=== PATIENT | male | born 1980 | race Caucasian/White ===

== ENCOUNTER 2020-02-11 17:00 | Emergency (ER) | payer OTHER ==
[~2020-02-11] VITALS: Ht 167.6 cm; Wt 129.3 kg
[2020-02-11 17:06] VITALS: BP 147/89
--- NOTE | 2020-02-11 17:15 | NUR ---
39/M c/o anxiety x 2-3 hours. Took Suboxone for pain prior to this. Ran out pain medication Oxycodone x couple days ago. States SOB. Speaking in full clear sentences. No CP. States "I cannot sit still". Hx anxiety and states "this feels like my usual anxiety but much worse". Hx- fibromyalgia, asthma, anxiety Addendum: 02/11/20 at 1720 by CHANDRAKANT Denies cough & fever
--- NOTE | 2020-02-11 17:16 | NUR ---
Pt connected to bedside monitor
--- NOTE | 2020-02-11 17:20 | NUR ---
Dr. Vee evaluating pt at bedside
[2020-02-11] MEDS ORDERED: NACL 0.9% 1,000 ML IV ONE (17:25)
[2020-02-11] MEDS ORDERED: hydrOXYzine HCL 25 MG TAB PO ONE (17:25)
--- NOTE | 2020-02-11 17:30 | NUR ---
PT INFORMED ME THAT HE ALSO TOOK NARCAN 4 MG AND METHADONE 10 MG AROUND THE SAME TIME THE TIME HE TOOK SUBOXONE. NOTIFIED DR. POPE. PER TARIK JOHN TO ADMINISTER THE ORDERED HYDROXYZINE PO.
--- NOTE | 2020-02-11 17:35 | NUR ---
EMT AT BEDSIDE FOR EKG
--- NOTE | 2020-02-11 17:41 | NUR ---
PT ATTEMPTING TO PROVIDE URINE SAMPLE VIA URINAL AT BEDSIDE.
--- NOTE | 2020-02-11 17:44 | NUR ---
PT UNABLE TO URINATE AT THIS TIME.
--- NOTE | 2020-02-11 17:50 | NUR ---
CALLED LAB, THEY WILL COME DRAW BLOOD.
--- NOTE | 2020-02-11 18:02 | NUR ---
PT ASKING FOR MORE ANTI-ANXIETY MEDS. DR. POPE MADE AWARE--NO NEW ORDERS AT THIS TIME. PT REMAINS CONNECTED TO BEDSIDE MONITOR.
--- NOTE | 2020-02-11 18:09 | NUR ---
Artistic Director at bedside for blood draw.
[2020-02-11 18:28] LABS: BASOPHILS # (AUTO) 0.1 K/uL (0.00-0.22); BASOPHILS % (AUTO) 0.9 % (0.0-2.0); EOSINOPHILS # (AUTO) 0.3 K/uL (0-0.4); EOSINOPHILS % (AUTO) 3.3 % (0.0-4.0); HEMATOCRIT 36.1 % (36-52); LYMPHOCYTES % (AUTO) 11.6 % (20.5-51.1); MEAN CORPUSCULAR HEMOGLOBIN 28 pg (27-31); MEAN CORPUSCULAR HGB CONC 33 g/dL (33-37); MEAN CORPUSCULAR VOLUME 84.8 fL (80-94); MONOCYTES # (AUTO) 1.1 K/uL (0.8-1.0); MONOCYTES % (AUTO) 11.8 % (1.7-9.3); NEUTROPHILS # (AUTO) 6.5 K/uL (1.8-7.7); NEUTROPHILS % (AUTO) 72.4 % (42.2-75.2); PLATELET COUNT (AUTO) 332 K/uL (140-450); RED BLOOD CELL COUNT(AUTO) 4.25 MIL/uL (4.20-6.10); RED CELL DISTRIBUTION WIDTH 14.1 % (11.6-13.7); WHITE BLOOD COUNT (AUTO) 8.9 K/uL (4.8-10.8)
[2020-02-11 18:51] LABS: ALBUMIN 3.9 g/dL (3.4-5.0); ASPARTATE AMINOTRANSFERASE 31 U/L (15-37); CARBON DIOXIDE 27.7 mmol/L (21-32); CHLORIDE 94 mmol/L (98-107); CREATININE 1.5 mg/dL (0.6-1.3); GFR ARICAN-AMERICAN 67 mL/min (>90); GLUCOSE 101 mg/dL (74-106); SODIUM SERUM 133 mmol/L (136-145); TOTAL BILIRUBIN 0.5 mg/dL (0.0-1.0); UREA NITROGEN, BLOOD 16 mg/dL (7-18)
[2020-02-11 18:53] LABS: POTASSIUM 2.7 mmol/L (3.5-5.1)
[2020-02-11] MEDS ORDERED: POTASSIUM CHLORIDE 10 MEQ TABER PO ONE (18:55)
[2020-02-11 18:56] LABS: BARBITURATE, URINE NEGATIVE ng/ml (NEG <=200); BENZODIAZEPINE, URINE POSITIVE ng/mL (NEG <=200); CANNABINOID, URINE NEGATIVE ng/mL (NEG <=50); COCAINE, URINE NEGATIVE ng/mL (NEG <=300); OPIATE, URINE NEGATIVE ng/mL (NEG <=2000); PHENCYCLIDINE SCREEN,URINE NEGATIVE ng/mL (NEG <=25)
--- NOTE | 2020-02-11 19:07 | NUR ---
RECEIVED REPORT FROM GIULIANO VELÁZQUEZ. WILL CONT CARE AT THIS TIME.
[2020-02-11 19:18] VITALS: BP 138/76
--- NOTE | 2020-02-11 19:18 | NUR ---
Patient discharged with v/s stable. Written and verbal after care instructions given and explained. Patient verbalized understanding. Ambulatory with steady gait. All questions addressed prior to discharge. Advised to follow up with PMD.
== END 2020-02-11 19:18 | disposition home or self-care (01) ==
LOC: MED 17:00
DX: F19.10 Other psychoactive substance abuse, uncomplicated (principal); F41.9 Anxiety disorder, unspecified; E87.6 Hypokalemia; N17.9 Acute kidney failure, unspecified; E87.1 Hypo-osmolality and hyponatremia
CPT/HCPCS: 36415; 80053; 80305; 85025; 93005; 99284; G0482; J7030